=== PATIENT | female | born 1945 | race Caucasian/White ===

== ENCOUNTER 2022-06-07 12:38 | Inpatient (IN) | payer MEDICAID, MEDICARE ==
[~2022-06-07] VITALS: Ht 160 cm; Wt 53.1 kg
[2022-06-07 12:44] VITALS: BP_SYST 113
[2022-06-07] MEDS ORDERED: ASPIRIN 81 MG TAB.CHEW PO ONE (13:45)
[2022-06-07 14:02] LABS: ANION GAP 3 (5-15); CALCIUM 8.3 mg/dL (8.4-11.0); CHLORIDE 107 mmol/L (98-107); CREATININE 0.77 mg/dL (0.55-1.30); GLUCOSE 174 mg/dL (70-99); POTASSIUM 4.5 mmol/L (3.5-5.1); SODIUM SERUM 140 mmol/L (136-145); UREA NITROGEN, BLOOD 18 mg/dL (8-21)
[2022-06-07 14:11] LABS: ALANINE AMINOTRANSFERASE 9 U/L (12-78); ALBUMIN 2.4 g/dL (3.4-4.8); ASPARTATE AMINOTRANSFERASE 20 U/L (10-37); TOTAL BILIRUBIN 0.3 mg/dL (0.0-1.0)
[2022-06-07 14:20] LABS: BASOPHILS % (AUTO) 0.2 % (0.0-2.0); EOSINOPHILS % (AUTO) 0.2 % (0.0-4.0); HEMOGLOBIN 7.4 g/dL (12.0-16.0); LYMPHOCYTES # (AUTO) 0.8 K/uL (1.0-5.5); LYMPHOCYTES % (AUTO) 10.9 % (20.5-51.5); MEAN CORPUSCULAR HEMOGLOBIN 33 pg (27-31); MEAN CORPUSCULAR HGB CONC 32 % (32-36); MEAN CORPUSCULAR VOLUME 102 fL (79.0-98.0); MONOCYTES # (AUTO) 0.1 K/uL (0.0-1.0); MONOCYTES % (AUTO) 1.3 % (1.7-9.3); NEUTROPHILS % (AUTO) 87.4 % (40.0-70.0); PLATELET COUNT (AUTO) 288 K/uL (130-430); RED BLOOD CELL COUNT(AUTO) 2.26 MIL/uL (4.2-6.2); RED CELL DISTRIBUTION WIDTH 22.6 % (9.0-15.0); WHITE BLOOD COUNT (AUTO) 6.9 K/uL (4.8-10.8)
[2022-06-07] MEDS: D5NS 500 ML IV SCH ×2 (16:11→20:35)
[2022-06-07] MEDS ORDERED: PRED10TA PO (17:29)
[2022-06-07] MEDS ORDERED: CLOP75TA32 PO (17:29)
[2022-06-07] MEDS ORDERED: TRAM50TA2 PO (17:29)
[2022-06-07] MEDS ORDERED: POLY17PO4 PO (17:29)
[2022-06-07] MEDS ORDERED: FAMO20TA8 PO (17:29)
[2022-06-07] MEDS ORDERED: ASPI-1155 PO (17:29)
[2022-06-07] MEDS ORDERED: ARGI1POW13 PO (17:29)
[2022-06-07] MEDS ORDERED: LOVI40 SQ (17:29)
[2022-06-07] MEDS ORDERED: SYN50 PO (17:29)
[2022-06-07] MEDS ORDERED: [UNRECOGNIZED DRUG - CODE] PO (17:29)
[2022-06-07] MEDS ORDERED: MONT10TA22 PO (17:29)
[2022-06-07] MEDS ORDERED: COR3.125 PO (17:29)
[2022-06-07] MEDS ORDERED: MULT-1117 PO (17:29)
[2022-06-07] MEDS ORDERED: ALBU2.5V7 INH (17:29)
[2022-06-07 18:25] VITALS: BP_SYST 120
[2022-06-07 20:00] VITALS: BP_SYST 111
[2022-06-07] MEDS: INSULIN REGULAR, HUMAN 100 UNITS/ML, 10 ML VIAL (humuLIN R) SUBCUT PRN (20:34)
[2022-06-07 21:06] VITALS: BP_SYST 125
[2022-06-07] MEDS ORDERED: DULA0.75 SQ (21:42)
[2022-06-07] MEDS ORDERED: ALBUTEROL SULFATE 0.083% 2.5 MG/3 ML VIAL.NEB INH PRN (21:45)
[2022-06-07 22:00] VITALS: BP_SYST 122
[2022-06-08] VITALS: BP_SYST 122
[2022-06-08] MEDS: D5NS 500 ML IV SCH ×3 (04:20→17:11)
[2022-06-08] MEDS: LEVOTHYROXINE SODIUM 0.05 MG TABLET PO SCH (06:01)
[2022-06-08 06:48] LABS: BASOPHILS % (AUTO) 0.4 % (0.0-2.0); EOSINOPHILS # (AUTO) 0.1 K/uL (0.0-0.4); EOSINOPHILS % (AUTO) 1.5 % (0.0-4.0); LYMPHOCYTES # (AUTO) 1.6 K/uL (1.0-5.5); LYMPHOCYTES % (AUTO) 29.2 % (20.5-51.5); MEAN CORPUSCULAR HEMOGLOBIN 34 pg (27-31); MEAN CORPUSCULAR HGB CONC 33 % (32-36); MEAN CORPUSCULAR VOLUME 103 fL (79.0-98.0); MONOCYTES # (AUTO) 0.7 K/uL (0.0-1.0); MONOCYTES % (AUTO) 13.3 % (1.7-9.3); NEUTROPHILS % (AUTO) 55.6 % (40.0-70.0); PLATELET COUNT (AUTO) 273 K/uL (130-430); RED CELL DISTRIBUTION WIDTH 22.2 % (9.0-15.0); WHITE BLOOD COUNT (AUTO) 5.4 K/uL (4.8-10.8)
[2022-06-08 07:54] LABS: ANION GAP 3 (5-15); CALCIUM 7.8 mg/dL (8.4-11.0); CHLORIDE 110 mmol/L (98-107); CREATININE 0.72 mg/dL (0.55-1.30); FREE T4 (FREE THYROXINE) 1.4 ng/dl (0.8-1.5); GLUCOSE 117 mg/dL (70-99); PHOSPHORUS 2.8 mg/dL (2.7-4.5); POTASSIUM 3.9 mmol/L (3.5-5.1); SODIUM SERUM 143 mmol/L (136-145); THYROID STIMULATING HORMONE 2.43 uIu/mL (0.36-3.74); UREA NITROGEN, BLOOD 15 mg/dL (8-21)
[2022-06-08 08:00] VITALS: BP_SYST 105
[2022-06-08 08:18] LABS: HEMOGLOBIN 6.8 g/dL (12.0-16.0); RED BLOOD CELL COUNT(AUTO) 1.99 MIL/uL (4.2-6.2)
[2022-06-08 08:19] LABS: HEMATOCRIT 20.4 % (36-48)
[2022-06-08] MEDS ORDERED: CARVEDILOL 3.125 MG TABLET (COREG) PO SCH (09:00)
[2022-06-08] MEDS: ENOXAPARIN SODIUM 40 MG/0.4 ML SYRINGE SQ SCH (09:00)
[2022-06-08] MEDS: predniSONE 10 MG TABLET PO SCH ×2 (09:00→09:05)
[2022-06-08] MEDS: MONTELUKAST 10 MG TABLET PO SCH ×2 (09:00→09:05)
[2022-06-08] MEDS: MULTIVITAMINS TAB 1 TABLET PO SCH ×2 (09:00→09:05)
[2022-06-08] MEDS: ASPIRIN 81 MG TAB.CHEW PO SCH ×2 (09:00→09:04)
[2022-06-08] MEDS: FAMOTIDINE 20 MG TABLET PO SCH ×2 (09:00→09:05)
[2022-06-08] MEDS: CLOPIDOGREL BISULFATE 75 MG TABLET PO SCH ×2 (09:00→09:05)
[2022-06-08] MEDS: POLYETHYLENE GLYCOL 3350, 17 GM/ POWD.PACK PO SCH ×2 (09:04→20:38)
[2022-06-08 09:05] LABS: TOTAL IRON BIND. CAPACITY 122 ug/dL (250-450)
[2022-06-08] MEDS ORDERED: CARVEDILOL 3.125 MG TABLET (COREG) PO ONE (10:15)
[2022-06-08 12:36] VITALS: BP_SYST 120
[2022-06-08 16:33] VITALS: BP_SYST 120
[2022-06-08 17:46] LABS: BILIRUBIN,URINE NEGATIVE (NEGATIVE); BLOOD, URINE 1+ (NEGATIVE); COLOR,URINE YELLOW (YELLOW); GLUCOSE,URINE NEGATIVE (NEGATIVE); KETONES,URINE NEGATIVE (NEGATIVE); LEUKOCYTE ESTERASE ,URINE NEGATIVE (NEGATIVE); NITRITE, URINE NEGATIVE (NEGATIVE); PROTEIN URINE NEGATIVE (NEGATIVE)
[2022-06-08 17:54] LABS: CLARITY/URINE SLIGHTLY CLOUDY (CLEAR)
[2022-06-08 17:57] LABS: BACTERIA,URINE FEW /HPF (None Seen); MUCUS,URINE None Seen /LPF (None Seen)
[2022-06-08] MEDS: traMADol HCL HCL 50 MG TABLET (ULTRAM) PO PRN (19:22)
[2022-06-08 20:00] VITALS: BP_SYST 137
[2022-06-08] MEDS: CARVEDILOL 3.125 MG TABLET (COREG) PO SCH (20:38)
[2022-06-08] MEDS ORDERED: SOD FERRIC GLUC COMPLEX/SUC 125 MG in NS 100 ML IV SCH (21:00)
[2022-06-09] VITALS: BP_SYST 128
[2022-06-09] MEDS: D5NS 500 ML IV SCH ×4 (00:20→20:50)
[2022-06-09] MEDS: LEVOTHYROXINE SODIUM 0.05 MG TABLET PO SCH (06:09)
[2022-06-09 07:02] LABS: BASOPHILS % (AUTO) 0.2 % (0.0-2.0); EOSINOPHILS # (AUTO) 0.2 K/uL (0.0-0.4); EOSINOPHILS % (AUTO) 3.2 % (0.0-4.0); HEMATOCRIT 26.2 % (36-48); HEMOGLOBIN 8.7 g/dL (12.0-16.0); LYMPHOCYTES # (AUTO) 1.5 K/uL (1.0-5.5); LYMPHOCYTES % (AUTO) 27.4 % (20.5-51.5); MEAN CORPUSCULAR HEMOGLOBIN 32 pg (27-31); MEAN CORPUSCULAR HGB CONC 33 % (32-36); MEAN CORPUSCULAR VOLUME 98 fL (79.0-98.0); MONOCYTES # (AUTO) 0.6 K/uL (0.0-1.0); MONOCYTES % (AUTO) 11.2 % (1.7-9.3); NEUTROPHILS # (AUTO) 3.3 K/uL (1.8-7.7); PLATELET COUNT (AUTO) 244 K/uL (130-430); RED BLOOD CELL COUNT(AUTO) 2.69 MIL/uL (4.2-6.2); RED CELL DISTRIBUTION WIDTH 21.9 % (9.0-15.0); RETICULOCYTE COUNT 7.4 % (0.5-1.5); WHITE BLOOD COUNT (AUTO) 5.6 K/uL (4.8-10.8)
[2022-06-09 08:00] VITALS: BP_SYST 134
[2022-06-09 08:06] LABS: FOLATE (FOLIC ACID) 10.1 ng/mL (>3.0)
[2022-06-09] MEDS: POLYETHYLENE GLYCOL 3350, 17 GM/ POWD.PACK PO SCH ×2 (09:40→20:49)
[2022-06-09] MEDS: SOD FERRIC GLUC COMPLEX/SUC 125 MG in NS 100 ML IV SCH (09:40)
[2022-06-09] MEDS: CLOPIDOGREL BISULFATE 75 MG TABLET PO SCH (09:41)
[2022-06-09] MEDS: FAMOTIDINE 20 MG TABLET PO SCH (09:41)
[2022-06-09] MEDS: predniSONE 10 MG TABLET PO SCH (09:41)
[2022-06-09] MEDS: MULTIVITAMINS TAB 1 TABLET PO SCH (09:41)
[2022-06-09] MEDS: ENOXAPARIN SODIUM 40 MG/0.4 ML SYRINGE SQ SCH (09:41)
[2022-06-09] MEDS: MONTELUKAST 10 MG TABLET PO SCH (09:41)
[2022-06-09] MEDS: ASPIRIN 81 MG TAB.CHEW PO SCH (09:41)
[2022-06-09] MEDS: CARVEDILOL 3.125 MG TABLET (COREG) PO SCH ×2 (09:42→20:49)
[2022-06-09 12:00] VITALS: BP_SYST 126
[2022-06-09 16:00] VITALS: BP_SYST 138
[2022-06-09 20:00] VITALS: BP_SYST 128
[2022-06-09] MEDS: traMADol HCL HCL 50 MG TABLET (ULTRAM) PO PRN (20:49)
[2022-06-10] VITALS: BP_SYST 134
[2022-06-10] MEDS: D5NS 500 ML IV SCH ×3 (03:00→16:28)
[2022-06-10] MEDS: LEVOTHYROXINE SODIUM 0.05 MG TABLET PO SCH (06:11)
[2022-06-10 07:09] LABS: BASOPHILS % (AUTO) 0.2 % (0.0-2.0); EOSINOPHILS # (AUTO) 0.1 K/uL (0.0-0.4); EOSINOPHILS % (AUTO) 1.6 % (0.0-4.0); HEMATOCRIT 25.6 % (36-48); HEMOGLOBIN 8.6 g/dL (12.0-16.0); LYMPHOCYTES # (AUTO) 1.4 K/uL (1.0-5.5); LYMPHOCYTES % (AUTO) 31.6 % (20.5-51.5); MEAN CORPUSCULAR HEMOGLOBIN 32 pg (27-31); MEAN CORPUSCULAR HGB CONC 33 % (32-36); MEAN CORPUSCULAR VOLUME 97 fL (79.0-98.0); MONOCYTES # (AUTO) 0.6 K/uL (0.0-1.0); MONOCYTES % (AUTO) 14.4 % (1.7-9.3); NEUTROPHILS # (AUTO) 2.3 K/uL (1.8-7.7); NEUTROPHILS % (AUTO) 52.2 % (40.0-70.0); PLATELET COUNT (AUTO) 231 K/uL (130-430); RED BLOOD CELL COUNT(AUTO) 2.64 MIL/uL (4.2-6.2); RED CELL DISTRIBUTION WIDTH 21.4 % (9.0-15.0); WHITE BLOOD COUNT (AUTO) 4.4 K/uL (4.8-10.8)
[2022-06-10 08:00] VITALS: BP_SYST 116
[2022-06-10] MEDS: POLYETHYLENE GLYCOL 3350, 17 GM/ POWD.PACK PO SCH ×2 (08:24→21:00)
[2022-06-10] MEDS: predniSONE 10 MG TABLET PO SCH (08:24)
[2022-06-10] MEDS: CLOPIDOGREL BISULFATE 75 MG TABLET PO SCH (08:24)
[2022-06-10] MEDS: MULTIVITAMINS TAB 1 TABLET PO SCH (08:24)
[2022-06-10] MEDS: SOD FERRIC GLUC COMPLEX/SUC 125 MG in NS 100 ML IV SCH (08:24)
[2022-06-10] MEDS: ENOXAPARIN SODIUM 40 MG/0.4 ML SYRINGE SQ SCH (08:24)
[2022-06-10] MEDS: ASPIRIN 81 MG TAB.CHEW PO SCH (08:24)
[2022-06-10] MEDS: FAMOTIDINE 20 MG TABLET PO SCH (08:24)
[2022-06-10] MEDS: CARVEDILOL 3.125 MG TABLET (COREG) PO SCH ×2 (08:25→21:33)
[2022-06-10] MEDS: MONTELUKAST 10 MG TABLET PO SCH (08:25)
[2022-06-10 08:27] VITALS: BP_SYST 116
[2022-06-10 12:00] VITALS: BP_SYST 137
[2022-06-10 16:00] VITALS: BP_SYST 122
[2022-06-10] MEDS: INSULIN REGULAR, HUMAN 100 UNITS/ML, 10 ML VIAL (humuLIN R) SUBCUT PRN (17:31)
[2022-06-10 20:00] VITALS: BP_SYST 125
[2022-06-10] MEDS: traMADol HCL HCL 50 MG TABLET (ULTRAM) PO PRN (21:37)
[2022-06-11] VITALS: BP_SYST 119; BP_SYST 126
[2022-06-11] MEDS: D5NS 500 ML IV SCH ×3 (03:48→11:31)
[2022-06-11] MEDS: LEVOTHYROXINE SODIUM 0.05 MG TABLET PO SCH (06:03)
[2022-06-11 06:51] LABS: BASOPHILS % (AUTO) 0.3 % (0.0-2.0); EOSINOPHILS # (AUTO) 0.1 K/uL (0.0-0.4); EOSINOPHILS % (AUTO) 1.2 % (0.0-4.0); HEMATOCRIT 25.3 % (36-48); HEMOGLOBIN 8.5 g/dL (12.0-16.0); LYMPHOCYTES # (AUTO) 1.8 K/uL (1.0-5.5); MEAN CORPUSCULAR HEMOGLOBIN 32 pg (27-31); MEAN CORPUSCULAR HGB CONC 34 % (32-36); MEAN CORPUSCULAR VOLUME 96 fL (79.0-98.0); MONOCYTES # (AUTO) 0.8 K/uL (0.0-1.0); NEUTROPHILS # (AUTO) 4.2 K/uL (1.8-7.7); NEUTROPHILS % (AUTO) 61.5 % (40.0-70.0); PLATELET COUNT (AUTO) 230 K/uL (130-430); RED BLOOD CELL COUNT(AUTO) 2.65 MIL/uL (4.2-6.2); RED CELL DISTRIBUTION WIDTH 20.5 % (9.0-15.0); WHITE BLOOD COUNT (AUTO) 6.9 K/uL (4.8-10.8)
[2022-06-11 07:45] LABS: ANION GAP 0 (5-15); CALCIUM 7.9 mg/dL (8.4-11.0); CHLORIDE 108 mmol/L (98-107); CREATININE 0.56 mg/dL (0.55-1.30); GLUCOSE 112 mg/dL (70-99); POTASSIUM 3.6 mmol/L (3.5-5.1); SODIUM SERUM 138 mmol/L (136-145); UREA NITROGEN, BLOOD 7 mg/dL (8-21)
[2022-06-11 08:00] VITALS: BP_SYST 104
[2022-06-11] MEDS: ENOXAPARIN SODIUM 40 MG/0.4 ML SYRINGE SQ SCH (08:44)
[2022-06-11] MEDS: SOD FERRIC GLUC COMPLEX/SUC 125 MG in NS 100 ML IV SCH (08:44)
[2022-06-11] MEDS: FAMOTIDINE 20 MG TABLET PO SCH (08:44)
[2022-06-11] MEDS: MULTIVITAMINS TAB 1 TABLET PO SCH (08:45)
[2022-06-11] MEDS: ASPIRIN 81 MG TAB.CHEW PO SCH (08:45)
[2022-06-11] MEDS: CLOPIDOGREL BISULFATE 75 MG TABLET PO SCH (08:45)
[2022-06-11] MEDS: CARVEDILOL 3.125 MG TABLET (COREG) PO SCH (08:45)
[2022-06-11] MEDS: predniSONE 10 MG TABLET PO SCH (08:45)
[2022-06-11] MEDS: MONTELUKAST 10 MG TABLET PO SCH (08:45)
[2022-06-11] MEDS: POLYETHYLENE GLYCOL 3350, 17 GM/ POWD.PACK PO SCH (08:46)
[2022-06-11 17:22] VITALS: BP_SYST 113
[2022-06-11 17:32] VITALS: BP_SYST 113
[2022-06-11 18:27] VITALS: BP_SYST 124
== END 2022-06-11 20:30 | DRG 663 ==
LOC: SED 12:38 → SMU 14:54
PROVIDERS: ADMIT Family Medicine; ATTEND Family Medicine
PROC: 30233N1 Transfusion of Nonautologous Red Blood Cells into Peripheral Vein, Percutaneous Approach (ICD-10-PCS; principal; 2022-06-08)
DX: D53.9 Nutritional anemia, unspecified (principal); R65.10 Systemic inflammatory response syndrome (SIRS) of non-infectious origin without acute organ dysfunction; E44.0 Moderate protein-calorie malnutrition; E83.41 Hypermagnesemia; E87.8 Other disorders of electrolyte and fluid balance, not elsewhere classified; E03.9 Hypothyroidism, unspecified; I10 Essential (primary) hypertension; Z20.822 Contact with and (suspected) exposure to COVID-19; M19.90 Unspecified osteoarthritis, unspecified site; Z68.20 Body mass index [BMI] 20.0-20.9, adult
CPT/HCPCS: 36415; 71045; 80048; 80053; 81000; 82607; 82728; 82746; 82962; 83540; 83550; 83735; 83880; 84100; 84439; 84443; 84484; 85025; 85044; 86886; 86900; 86901; 86920; 87081; 93005; 99285; J1650; J1815; J2916; J7512; P9021

== ENCOUNTER 2022-09-09 08:11 | Inpatient (IN) | payer OTHER, MEDICAID ==
[~2022-09-09] VITALS: Ht 160 cm; Wt 45.8 kg
[~2022-09-09 08:11] MED LIST: ALBU2.5V7 INH; ARGI1POW13 PO; ASPI-1155 PO; CLOP75TA32 PO; COR3.125 PO; FAMO20TA8 PO; MONT10TA22 PO; MULT-1117 PO; POLY17PO4 PO; PRED10TA PO; SYN50 PO; TRAM50TA2 PO; [UNRECOGNIZED DRUG - CODE] PO
[2022-09-09 08:27] VITALS: BP_SYST 110
--- NOTE | 2022-09-09 08:40 | NUR ---
RECEIVED PT FROM EMT, PT BIBA ACLS FOR ALOC FROM [facility]. PT'S BASELINE IS A/OX1-2, STAFF AT SNF STATES PT IS MORE ALTERED THAN NORMAL. TEMP 99.7, HR 102. RESP SHALLOW, LUNG SOUNDS DIMINISHED. NO S/S OF N/V/D/C. PT INCONTENT OF BOWEL AND BLADDER. DISTAL PULSES NORMAL, SKIN WARM AND INTACT, NO EDEMA. PT HAS LEILANI MIDLINE WITH 2 LUMENS. DRESSING SOILED. SIDERAILS UP X2.
--- NOTE | 2022-09-09 09:04 | NUR ---
MIDLINE DRESSING CHANGE PREFORMED. SITE SHOWS WHITE PUS, DR. GLOVER MADE AWARE AND ASSESED SITE. STATED OKAY TO USE LINE. LINE FLUSHED AND PATENT.
--- NOTE | 2022-09-09 09:05 | NUR ---
LABS DRAWN, CXR PREFORMED. PT MAP 68, DR. GLOVER MADE AWARE. RECEIVED ORDER FOR 1000ML NS BOLUS, ORDER CARRIED OUT.
[2022-09-09] MEDS ORDERED: NACL 0.9% 1,000 ML IV ONE ×2 (09:15→12:30)
[2022-09-09 09:23] LABS: BASOPHILS % (AUTO) 0.1 % (0.0-2.0); HEMATOCRIT 32.4 % (36-48); HEMOGLOBIN 10.7 g/dL (12.0-16.0); LYMPHOCYTES # (AUTO) 0.5 K/uL (1.0-5.5); LYMPHOCYTES % (AUTO) 3.4 % (20.5-51.5); MEAN CORPUSCULAR HEMOGLOBIN 30 pg (27-31); MEAN CORPUSCULAR HGB CONC 33 % (32-36); MEAN CORPUSCULAR VOLUME 90 fL (79.0-98.0); MONOCYTES # (AUTO) 0.6 K/uL (0.0-1.0); MONOCYTES % (AUTO) 4.7 % (1.7-9.3); NEUTROPHILS # (AUTO) 12.5 K/uL (1.8-7.7); NEUTROPHILS % (AUTO) 91.8 % (40.0-70.0); PLATELET COUNT (AUTO) 138 K/uL (130-430); RED BLOOD CELL COUNT(AUTO) 3.59 MIL/uL (4.2-6.2); WHITE BLOOD COUNT (AUTO) 13.7 K/uL (4.8-10.8)
--- NOTE | 2022-09-09 09:29 | NUR ---
COVID OBTAINED, BELONGINGS COMPLETED. PT TAKEN FOR CT SCAN AT THIS TIME.
[2022-09-09 09:45] LABS: INR 1.1 (0.8-1.2); PROTHROMBIN TIME 11.1 SECS (9.5-12.5)
[2022-09-09 09:50] LABS: ANION GAP 5 (5-15); CALCIUM 8.7 mg/dL (8.4-11.0); CHLORIDE 103 mmol/L (98-107); CREATININE 1.41 mg/dL (0.55-1.30); GLUCOSE 112 mg/dL (70-99); UREA NITROGEN, BLOOD 36 mg/dL (8-21)
[2022-09-09 10:03] LABS: ACETAMINOPHEN < 1 ug/mL (1-30); ALANINE AMINOTRANSFERASE 8 U/L (12-78); ALCOHOL, BLOOD 5 mg/dL (<10); ASPARTATE AMINOTRANSFERASE 32 U/L (10-37); C-REACTIVE PROTEIN QUANT 39.7 mg/dL (0-0.5); TOTAL BILIRUBIN 1.3 mg/dL (0.0-1.0)
--- NOTE | 2022-09-09 10:07 | NUR ---
lab reported troponin 4099 primary rn made aware.
[2022-09-09 10:11] LABS: ACETONE, SERUM NEGATIVE (NEGATIVE)
[2022-09-09 10:33] LABS: BILIRUBIN,URINE 1+ (NEGATIVE); BLOOD, URINE 3+ (NEGATIVE); GLUCOSE,URINE NEGATIVE (NEGATIVE); KETONES,URINE NEGATIVE (NEGATIVE); LEUKOCYTE ESTERASE ,URINE TRACE (NEGATIVE); NITRITE, URINE NEGATIVE (NEGATIVE); PROTEIN URINE 2+ (NEGATIVE)
[2022-09-09 10:40] LABS: CLARITY/URINE HAZY (CLEAR); COLOR,URINE YELLOW (YELLOW); UROBILINOGEN,URINE >=8 (0.2-1.0)
[2022-09-09 10:49] LABS: BARBITURATE, URINE NEGATIVE (NEG <=200); BENZODIAZEPINE, URINE NEGATIVE (NEG <=150); CANNABINOID, URINE NEGATIVE (NEG <=50); COCAINE, URINE NEGATIVE (NEG <=150); METHAMPHETAMINES SCREEN,URINE NEGATIVE (NEG <=500); OPIATE, URINE NEGATIVE (NEG <=100); PHENCYCLIDINE SCREEN,URINE NEGATIVE (NEG <=25); UR TRICYCLIC ANTIDEPRESSANTS NEGATIVE (NEG <=300); URINE AMPHETAMINE NEGATIVE (NEG <=500); URINE METHADONE NEGATIVE (NEG <=200); URINE OXYCODONE SCREEN NEGATIVE (NEG <=100); URINE PROPOXYPHENE SCREEN NEGATIVE (NEG <=300)
--- NOTE | 2022-09-09 11:05 | NUR ---
Admit bed requested Patient will be admitted to care of . Admitted to TELEMETRY unit. Diagnosis ARF,DEHYDRATION,ELEVATE TROPONIN Inpatient (Yes or No) YES Observation (Yes or No) NO Orientation concerns or request close to nursing station (Yes or No) NO Covid Status NEG On vent or bipap NO Isolation requirements NO Needs a sitter NO From Home (Yes or if No enter name of facility) [facility] Requires Dialysis (Yes or No) NO Med Rec Completed (Yes of No) YES
[2022-09-09 11:31] LABS: BACTERIA,URINE MANY /HPF (None Seen)
--- NOTE | 2022-09-09 12:26 | NUR ---
DR. ENGLISH AT BEDSIDE TO ASSESS PT. RECEIVED ORDER FOR 1000ML NS BOLUS. ORDER CARRIED OUT.
[2022-09-09] MEDS ORDERED: cefTRIAXone 1 GM in D5W 50 ML IV SCH (12:30)
[2022-09-09] MEDS ORDERED: METHYLPREDNISOLONE SOD SUCC 40 MG/ML VIAL IVP ONE (13:00)
[2022-09-09] MEDS ORDERED: ENOXAPARIN SODIUM 40 MG/0.4 ML SYRINGE SUBCUT ONE (13:00)
[2022-09-09] MEDS: POTASSIUM CHLORIDE 20 MEQ in D5NS 1,000 ML IV SCH ×2 (13:38→23:06)
--- NOTE | 2022-09-09 13:39 | NUR ---
SCHEDULED MEDS GIVEN. D5 KCL 20 MEQ IVF STARTED AT 100ML/HOUR.
--- NOTE | 2022-09-09 14:39 | NUR ---
Patient will be admitted to care of GARRICK KO. Admitted to TELEMETRY unit. Will go to room 121B. Belongings list completed. Complete and up to date summary report printed. SBAR report to be given at bedside with opportunity for questions.
[2022-09-09] MEDS ORDERED: LEVO125C4 PO (14:54)
[2022-09-09] MEDS ORDERED: MONT10TA22 PO (14:54)
[2022-09-09] MEDS ORDERED: INSU100V (14:54)
[2022-09-09] MEDS ORDERED: POLY1530 PO (14:54)
[2022-09-09] MEDS ORDERED: MULT-1117 PO (14:54)
[2022-09-09] MEDS ORDERED: PRO40 PO (14:54)
[2022-09-09] MEDS ORDERED: MIRT7.5T11 PO (14:54)
[2022-09-09] MEDS ORDERED: APIX2.5T PO (14:54)
[2022-09-09] MEDS ORDERED: ALBU2.5V7 INH (14:54)
[2022-09-09] MEDS ORDERED: LOSA100T23 PO (14:54)
[2022-09-09] MEDS ORDERED: NITR0.4T47 SL (14:54)
[2022-09-09] MEDS ORDERED: MOM PO (14:54)
[2022-09-09] MEDS ORDERED: AMIO200T66 PO (14:54)
[2022-09-09] MEDS ORDERED: TRAM50TA2 PO (14:54)
[2022-09-09] MEDS ORDERED: [UNRECOGNIZED DRUG - CODE] PO (14:54)
[2022-09-09] MEDS ORDERED: CARV3.1246 PO (14:54)
[2022-09-09] MEDS ORDERED: CLON0.1T PO (14:54)
[2022-09-09 15:09] VITALS: BP_SYST 102
--- NOTE | 2022-09-09 16:30 | NUR ---
receive the patient at rm 121B from emergency room driss Martinez in a stable condition under the care md dockery with admitting diagnosis of acute renal failure , dehydration , elevated troponin . aox1-2 no complain of pain at this time . no sign and symptoms of respiratory distress . will continue to monitor
--- NOTE | 2022-09-09 16:41 | NUR ---
just placed charles catheter . submitted sample for urine culture to the laboratory
[2022-09-09] MEDS ORDERED: ONDANSETRON HCL 4 MG/2 ML VIAL IVP PRN (16:45)
--- NOTE | 2022-09-09 16:52 | NUR ---
CONSULT GI DYSPHAGIA DR ROMAN [phone] S/W MARY EXCHANGE
--- NOTE | 2022-09-09 18:41 | NUR ---
will endorse to flight follower rn for continuity of care
[2022-09-09 20:00] VITALS: BP_SYST 104
[2022-09-09] MEDS: PANTOPRAZOLE SODIUM 40 MG/VIAL (PROTONIX) IVP SCH (22:18)
[2022-09-09] MEDS: METHYLPREDNISOLONE SOD SUCC 40 MG/ML VIAL IVP SCH (22:19)
[2022-09-10] VITALS: BP_SYST 113
[2022-09-10 04:17] LABS: BASOPHILS % (AUTO) 0.1 % (0.0-2.0); EOSINOPHILS % (AUTO) 0.2 % (0.0-4.0); HEMOGLOBIN 9.8 g/dL (12.0-16.0); LYMPHOCYTES # (AUTO) 0.3 K/uL (1.0-5.5); LYMPHOCYTES % (AUTO) 3.2 % (20.5-51.5); MEAN CORPUSCULAR HEMOGLOBIN 30 pg (27-31); MEAN CORPUSCULAR HGB CONC 34 % (32-36); MEAN CORPUSCULAR VOLUME 90 fL (79.0-98.0); MONOCYTES # (AUTO) 0.3 K/uL (0.0-1.0); MONOCYTES % (AUTO) 3.5 % (1.7-9.3); PLATELET COUNT (AUTO) 112 K/uL (130-430); RED BLOOD CELL COUNT(AUTO) 3.23 MIL/uL (4.2-6.2); RED CELL DISTRIBUTION WIDTH 17.2 % (9.0-15.0); WHITE BLOOD COUNT (AUTO) 8.6 K/uL (4.8-10.8)
[2022-09-10 04:44] LABS: INR 1.1 (0.8-1.2); PROTHROMBIN TIME 10.8 SECS (9.5-12.5)
[2022-09-10 05:00] LABS: ALBUMIN 1.7 g/dL (3.4-4.8); TOTAL BILIRUBIN 0.6 mg/dL (0.0-1.0)
[2022-09-10 05:02] LABS: ALANINE AMINOTRANSFERASE 15 U/L (12-78); ANION GAP 5 (5-15); ASPARTATE AMINOTRANSFERASE 38 U/L (10-37); CALCIUM 8.2 mg/dL (8.4-11.0); CHLORIDE 108 mmol/L (98-107); CREATININE 1.34 mg/dL (0.55-1.30); GLUCOSE 208 mg/dL (70-99); LIPASE 33 U/L (73-393); THYROID STIMULATING HORMONE 5.68 uIu/mL (0.36-3.74); UREA NITROGEN, BLOOD 48 mg/dL (8-21)
[2022-09-10 06:52] LABS: CHOLESTEROL 81 mg/dL (<200); HDL CHOLESTEROL 18 mg/dL (>55); LDL CHOLESTEROL 23 mg/dL (<100); TRIGLYCERIDES 112 mg/dL (30-150)
[2022-09-10] MEDS: PANTOPRAZOLE SODIUM 40 MG/VIAL (PROTONIX) IVP SCH ×2 (09:00→22:17)
[2022-09-10] MEDS: METHYLPREDNISOLONE SOD SUCC 40 MG/ML VIAL IVP SCH ×2 (09:00→22:17)
[2022-09-10] MEDS ORDERED: ENOXAPARIN SODIUM 40 MG/0.4 ML SYRINGE SUBCUT SCH ×2 (09:00)
[2022-09-10] MEDS: POTASSIUM CHLORIDE 20 MEQ in D5NS 1,000 ML IV SCH ×2 (09:12→17:54)
[2022-09-10] MEDS ORDERED: VANCOMYCIN HCL 1 GM/NS PREMIX 250 ML IV ONE (11:15)
[2022-09-10 11:42] VITALS: BP_SYST 107
[2022-09-10] MEDS ORDERED: *PPN PER PHARMACY XX PRN (15:15)
--- NOTE | 2022-09-10 17:14 | NUR ---
MD DAVID PAGED FOR KCL 3.2
--- NOTE | 2022-09-10 17:15 | NUR ---
40MEQ KCL IV ORDERED AND STARTED BAG 1
[2022-09-10] MEDS ORDERED: KCL 40 mEq in 100 mL (PREMIX) 100 ML IV ONE (17:30)
[2022-09-10 17:36] VITALS: BP_SYST 112
[2022-09-10] MEDS: KCL 20 mEq in 100 mL (PREMIX) 100 ML IV SCH ×2 (17:53→22:26)
--- NOTE | 2022-09-10 18:55 | NUR ---
PRELIMINARY BLOOD CLUTURES POSITIVE DR GRACIE ROMERO. PT DAUGHTER IN AT BEDSIDE AND SINGNED CONSENT FOR PEG
[2022-09-10 20:00] VITALS: BP_SYST 108
[2022-09-11] VITALS: BP_SYST 110
[2022-09-11 04:00] VITALS: BP_SYST 114
[2022-09-11 08:00] VITALS: BP_SYST 112
--- NOTE | 2022-09-11 08:49 | NUR ---
DR WELSH PAGED REGARDING MRSA OF NARES AWAITING A RETURN CALL
--- NOTE | 2022-09-11 08:51 | NUR ---
CALLED BACK BACTROBAN BID X7 DAYS
[2022-09-11] MEDS: METHYLPREDNISOLONE SOD SUCC 40 MG/ML VIAL IVP SCH ×2 (09:59→23:04)
[2022-09-11] MEDS: PANTOPRAZOLE SODIUM 40 MG/VIAL (PROTONIX) IVP SCH ×2 (09:59→23:04)
[2022-09-11] MEDS: POTASSIUM CHLORIDE 20 MEQ in D5NS 1,000 ML IV SCH ×2 (10:02→15:30)
[2022-09-11 12:00] VITALS: BP_SYST 109
[2022-09-11] MEDS: MIDAZOLAM HCL 5 MG/5 ML VIAL ONE ×2 (12:22→12:26)
[2022-09-11] MEDS: MEPERIDINE 100 MG INJ. 100 MG/ML VIAL ONE ×2 (12:22→12:26)
[2022-09-11] MEDS ORDERED: VANCOMYCIN HCL 1 GM/NS PREMIX 250 ML IV ONE (12:45)
--- NOTE | 2022-09-11 13:30 | NUR ---
PT WENT FOR PEG PLACEMENT AND RETURNED VITAL SIGNS STABLE VANCOMYCIN STARTED PT APPEARS STABLE WILL CONTINUE TO MONITOR AND ASSESS
--- NOTE | 2022-09-11 14:30 | NUR ---
CALL PLACED TO MD GAYTAN REGARDING PT POSITIVE FOR ECOLI AND MDRO OF URINE PER MD HE WILL BE IN TO WRITE NEW ORDERS FOR PT
[2022-09-11 16:00] VITALS: BP_SYST 117
--- NOTE | 2022-09-11 16:30 | NUR ---
Dietitian Recommendations * If/when medically appropriate, initiate EN: Glucerna 1.2 @ 60mL/hr (goal); 150mL Free water flushes Q6h via GT Provides daily: 1728kcals, 86g pro, 1759mL (1159mL EN) Meets: 94% upper estimated kcals, 94% upper estimated PRO, 98% upper estimated fluids * Start EN @ 20mL and increase 10mL q 10-12H till goal * Refeeding risk: monitor electrolytes and thiamine x 3-5 days * Recommend MVI, B12, thiamine, VIT C, and VIT D for FTT * Consider monitor Fe lab Please refer to nutrition assessment for details, thanks! CC, MPH, RDN
[2022-09-11 20:15] VITALS: BP_SYST 138
--- NOTE | 2022-09-11 20:30 | NUR ---
Opening Note Received bedside report from [facility] nurse. Pt is in bed visiting with family, no sign /symptom of pain or distress. Patient admitted for NSTEMI and is having difficult time breathing, requiring a Rapid Response today. Daughter (RN) will stay overnight at bedside to assist in care of patient. Safety measures are in place, Addendum: 09/12/22 at 1545 by Neema Brown RN CORRECTION: NOTE FOR INCORRECT PATIENT - PLEASE DISREGARD!
[2022-09-11] MEDS ORDERED: TPN PERIPHERAL 0.0001 ML, SODIUM ACETATE 40 MEQ, POTASSIUM CHLORIDE 20 MEQ, K PHOS 9 MM... IV SCH ×9 (21:00)
[2022-09-11] MEDS: FAT EMULSIONS 250 ML IV SCH (23:18)
[2022-09-11] MEDS: AMIKACIN SULFATE 250 MG in D5W 100 ML IV SCH (23:45)
[2022-09-11] MEDS: MUPIROCIN 2% TOPICAL OINTMENT 22 GM NS SCH (23:45)
[2022-09-12 00:27] VITALS: BP_SYST 145
[2022-09-12 08:00] VITALS: BP_SYST 149
[2022-09-12 09:08] LABS: ALANINE AMINOTRANSFERASE 15 U/L (12-78); ALBUMIN 1.8 g/dL (3.4-4.8); ANION GAP 8 (5-15); ASPARTATE AMINOTRANSFERASE 19 U/L (10-37); CALCIUM 7.9 mg/dL (8.4-11.0); CHLORIDE 118 mmol/L (98-107); CREATININE 1.41 mg/dL (0.55-1.30); PHOSPHORUS 3.4 mg/dL (2.7-4.5); TOTAL BILIRUBIN 0.6 mg/dL (0.0-1.0); UREA NITROGEN, BLOOD 54 mg/dL (8-21)
[2022-09-12 09:28] LABS: GLUCOSE 426 mg/dL (70-99)
[2022-09-12] MEDS: PANTOPRAZOLE SODIUM 40 MG/VIAL (PROTONIX) IVP SCH ×2 (10:24→23:19)
[2022-09-12] MEDS: AMIKACIN SULFATE 250 MG in D5W 100 ML IV SCH ×2 (10:24→23:14)
[2022-09-12] MEDS: METHYLPREDNISOLONE SOD SUCC 40 MG/ML VIAL IVP SCH ×2 (10:24→23:15)
[2022-09-12] MEDS: MUPIROCIN 2% TOPICAL OINTMENT 22 GM NS SCH ×2 (10:26→23:19)
[2022-09-12] MEDS ORDERED: INSULIN REGULAR, HUMAN 100 UNITS/ML, 3 ML VIAL SUBCUT ONE (10:30)
[2022-09-12 12:00] VITALS: BP_SYST 113
--- NOTE | 2022-09-12 13:23 | NUR ---
blood glucose 336 paged no sliding scale ordered at this time awaiting a return call
--- NOTE | 2022-09-12 13:39 | NUR ---
Spoke w/ patient's daughter, Sinai, . She does not want her mother to go to SNF when discharged. She would like her to go home. The patient's daughter will need instruction on G-Tube feedings befoe the patient can be discharged.
--- NOTE | 2022-09-12 15:20 | NUR ---
MD WELSH PAGED FOR SLIDING SCALE FOR PT AWAITING A RETURN CALL SECOND PAGE
[2022-09-12 16:00] VITALS: BP_SYST 142
[2022-09-12] MEDS: INSULIN REGULAR, HUMAN 100 UNITS/ML, 3 ML VIAL (humuLIN R) SUBCUT SCH (18:19)
--- NOTE | 2022-09-12 18:43 | NUR ---
Nutrition F/U: Admitting Diagnosis Acute renal failure, dehydration, elevated troponin Reviewed Pertinent Medical/Surgical Hx Medical Record; RN; Bicycle DesignerTumblers Supervisor History Comment: Per EMR: 77y female BIBA for ALOC from [facility] with PMHx HTN, DM, Dementia, CAD, dysphagia and documented FTT. Per MD notes, pt found with poor PO x several weeks, anemia, dehydration, MARCELINA, metabolic encephalopathy; patient is poorly responsive and bedbound. SxHx: CABG, bowel resection x4 months RETAIL SERVICE TECHNICIAN Subjective Information: Bicycle Designer requested RD provide bolus feeding recommendations d/t patient family requests patient to go home instead of back to SNF. CM also asked RD to provide GT feeding education for pt family. RD verbalized bolus recs to CM via phone: 6 x 237mL (8oz) cartons Glucerna 1.2 per day; Free water flushes 150mL Q6H via GT. RD rounded to patient room and witnessed patient in bed with Jevity 1.2 infusing at 30mL/hr via GT. Patient would not wake to RD voice. RD unable to complete NFPE without pt consent. Pt under covers so visual NFPE could not be completed either. Pt family not in room so RD could not discuss new GT bolus feedings or nutrition/weight Hx. RD informed pt RN of handout x 2 on EN and bolus GT edu. RD left handouts in pt hard chart, per RN request. Pt was started on standard TPN (D20 AA8.5% at 42mL/hr (goal) + 20% ILE at 5mL/hr on 09/11 at 2300. TPN was d/c on 09/12 and GTF was initiated per MD. Pt noted with LBM x 1 09/12. Current Diet Order/Nutrition Support: Jevity 1.2 at 60mL/hr (goal) via GT x 0 Patient/Significant Other Unable To Verbalize Education Provided 09/12: EN; bolus GTF at home handouts for pt family left in hard chart Pertinent Medications: SSI, Protonix IV, solumedrol Pertinent Labs: Drawn 09/12 - Na 149 H, K+ 5.4 H, BUN 54 H, Cre 1.41 H, BG 426 H*, POC BG 336, 320 H, Ca 7.9 L, Phos 3.4 WNL Height (Feet) 5 feet Height (Inches) 3.00 inches Weight (Pounds) 101 pounds Weight (Calculated Kilograms) 45.694872 kilograms Patient Weight 45.813 kg Body Mass Index 17.89 kg/m2 %IBW 88 Sunburst/Adjusted Body Weight 115#/ 52kg Weight Status Underweight Skin Integrity Comment: Vlad Score 13: Coccyx erythema; no edema per EMR 09/12 Current % PO 0% - NPO Estimated Energy Expenditure (kcals/day) 6471-7882 (35-40 kcals/kg to promote weight gain, FTT Dx) Estimated Protein Required (g/day) 69-92 (1.5-2.0 g/kg to promote weight gain, FTT Dx) Estimated Fluid Required (l/day) 1.6-1.8 (1mL/kcal) Problem/Etiology/Signs/Symptoms * Failure to thrive r/t poor PO intake a/e/b BMI 17.9 underweight, s/p PEG placement, SNF FTT Dx (On-going) Expected Outcomes/Goals Monitor nutritional intakes with pt tolerating EN at goal, EN provides >95% estimated nutritional needs, nutrition-related labs trending WNL, normal GI function, weight maintenance/skin integrity Dietitian Recommendations * Continue current EN per MD: Jevity 1.2 at 60mL/hr (goal), FWF per MD via GT * Home EN rec: 6 x 237mL (8oz) cartons Glucerna 1.2 per day; FWF 150mL Q6H via GT Provides 1710kcals, 86g PRO, 1752mL Free water (1152 EN) Meets: 107% upper estimated kcals, 93% upper estimated PRO, 110% estimated fluids * Refeeding risk: monitor electrolytes and thiamine x 3-5 days * Recommend MVI, B12, thiamine, VIT C, and VIT D for FTT * Consider monitor Fe lab High Risk: F/U in 2-3days
--- NOTE | 2022-09-12 18:46 | NUR ---
Dietitian Recommendations * Continue current EN per MD: Jevity 1.2 at 60mL/hr (goal), FWF per MD via GT * Home EN rec: 6 x 237mL (8oz) cartons Glucerna 1.2 per day; FWF 150mL Q6H via GT Provides 1710kcals, 86g PRO, 1752mL Free water (1152 EN) Meets: 107% upper estimated kcals, 93% upper estimated PRO, 110% estimated fluids * Refeeding risk: monitor electrolytes and thiamine x 3-5 days * Recommend MVI, B12, thiamine, VIT C, and VIT D for FTT * Consider monitor Fe lab Please refer to nutrition assessment for details, thanks! CC, MPH, YUNG Addendum: 09/13/22 at [address] RD included additional home instructions for bolus feeding in pt's hard chart and left another copy on top of pt's bedside table this morning.
[2022-09-12 20:00] VITALS: BP_SYST 135
[2022-09-12] MEDS ORDERED: MAGNESIUM SULFATE IV SCH ×6 (21:00)
[2022-09-12] MEDS ORDERED: TPN PERIPHERAL IV SCH ×6 (21:00)
[2022-09-12] MEDS ORDERED: MVI IV SCH ×6 (21:00)
[2022-09-12] MEDS ORDERED: [UNRECOGNIZED DRUG - OTHER] IV SCH ×6 (21:00)
[2022-09-12] MEDS ORDERED: TRACE ELEMENTS IV SCH ×6 (21:00)
[2022-09-12] MEDS ORDERED: AMIKACIN SULFATE 500 MG/2 ML VIAL ONE (23:10)
[2022-09-12] MEDS: FAT EMULSIONS 250 ML IV SCH (23:18)
[2022-09-13] VITALS (10 sets, daily range): BP systolic 85–130
[2022-09-13] MEDS: INSULIN REGULAR, HUMAN 100 UNITS/ML, 3 ML VIAL (humuLIN R) SUBCUT SCH ×4 (00:17→18:54)
[2022-09-13 07:09] LABS: ALANINE AMINOTRANSFERASE 18 U/L (12-78); ALBUMIN 1.9 g/dL (3.4-4.8); ANION GAP 7 (5-15); ASPARTATE AMINOTRANSFERASE 24 U/L (10-37); CALCIUM 8.4 mg/dL (8.4-11.0); CHLORIDE 118 mmol/L (98-107); CREATININE 1.34 mg/dL (0.55-1.30); GLUCOSE 272 mg/dL (70-99); PHOSPHORUS 2.3 mg/dL (2.7-4.5); TOTAL BILIRUBIN 0.8 mg/dL (0.0-1.0); UREA NITROGEN, BLOOD 60 mg/dL (8-21)
[2022-09-13 07:17] LABS: BASOPHILS % (AUTO) 0.2 % (0.0-2.0); HEMATOCRIT 32.5 % (36-48); HEMOGLOBIN 10.7 g/dL (12.0-16.0); LYMPHOCYTES # (AUTO) 0.2 K/uL (1.0-5.5); LYMPHOCYTES % (AUTO) 1.4 % (20.5-51.5); MEAN CORPUSCULAR HEMOGLOBIN 30 pg (27-31); MEAN CORPUSCULAR HGB CONC 33 % (32-36); MEAN CORPUSCULAR VOLUME 91 fL (79.0-98.0); MONOCYTES # (AUTO) 0.6 K/uL (0.0-1.0); MONOCYTES % (AUTO) 3.6 % (1.7-9.3); NEUTROPHILS # (AUTO) 15.6 K/uL (1.8-7.7); NEUTROPHILS % (AUTO) 94.8 % (40.0-70.0); PLATELET COUNT (AUTO) 90 K/uL (130-430); RED BLOOD CELL COUNT(AUTO) 3.57 MIL/uL (4.2-6.2); RED CELL DISTRIBUTION WIDTH 17.6 % (9.0-15.0); WHITE BLOOD COUNT (AUTO) 16.5 K/uL (4.8-10.8)
--- NOTE | 2022-09-13 08:00 | NUR ---
PATIENT RESTING IN BED. BED LOCKED AT LOWEST POSITION, SIDE RAILS UP, CALL LIGHT WITHIN REACH. PATIENT APPEARS COMFORTABLE. DENIES PAIN OR DISCOMFORT.
--- NOTE | 2022-09-13 10:30 | NUR ---
PATIENT SATURATING 86 ON ROOM AIR. NASAL CANNULA PUT ON PATIENT AT 2L, O2 95%. PATIENT TOLERATING WELL.
[2022-09-13] MEDS: METHYLPREDNISOLONE SOD SUCC 40 MG/ML VIAL IVP SCH (10:43)
[2022-09-13] MEDS: AMIKACIN SULFATE 250 MG in D5W 100 ML IV SCH ×2 (10:43→21:57)
[2022-09-13] MEDS: MUPIROCIN 2% TOPICAL OINTMENT 22 GM NS SCH ×2 (10:43→21:58)
[2022-09-13] MEDS: PANTOPRAZOLE SODIUM 40 MG/VIAL (PROTONIX) IVP SCH ×2 (10:44→21:59)
--- NOTE | 2022-09-13 12:00 | NUR ---
FEEDING INCREASED TO 40CC, PER GI DOCTOR INCREASE FEEDING TO 60 IF PATIENT TOLERATING WELL. LESS THAN 10 CC NOTED RESIDUAL
--- NOTE | 2022-09-13 13:57 | NUR ---
Discharge Planning: DCP faxed patient referral to [facility] [phone], [facility] [phone] for gtube feeding. DCP to follow up.
--- NOTE | 2022-09-13 15:30 | NUR ---
RESIDUAL CHECKED, LESS THAN 10CC, FEEDING INCREASED TO 60CC/HR. PATIENT REPOSITIONED. PATIENT STATES SHE WANTS WATER. NURSE INFORMED HER SHE IS NPO AND IS GETTING FEEDING VIA GTUBE. PATIENT COVERED WITH BLANKETS AND MADE COMFORTABLE.
--- NOTE | 2022-09-13 17:00 | NUR ---
PATIENT REMOVED O2 NASAL CANNULA, OXYGEN SATURATION 94% ROOM AIR. PATIENT STATES SHE IS COLD. BLANKETS PUT TO COVER SHOULDERS. WILL CONTINUE TO MONITOR.
--- NOTE | 2022-09-13 17:20 | NUR ---
Rebecca hoang called for patient. Patient was found unresponsive in bed. Pulse check not palpable. CPR started. Crash cart at bedside Rebecca hoang team came to assist. Dr. Tony at bedside to give verbal orders. Patient intubated and CPR continues. ACLS meds given. 3 rounds of Epinephrine given at stated intervals per protocol. 2 doses sodium bicarb given per protocol and Dr. Hernandez orders. Patient stabilized. Vital signs stable with blood pressure and pulse noted. Patient transferred to ICU.
--- NOTE | 2022-09-13 17:40 | NUR ---
RT NOTES Responded to code blue, pt was vomiting, oral sxn done, cpr in progress, bagged pt with 100% with BM device via mask. 175 pt was intubated with 7.5 ETT secured @22cm lipline, sxn via ETT. CO2 changed to yellow, bilateral b/s confirmed. 175 ROSC 180 transferred to ICU 4 placed on vent @1805. Pt. appear tolerate settings well. 181 no palpable pulse, cpr started, took pt off the vent and bagged with 100% O2 with Bm device to ETT. 1818 ROSC, pt back on vent, pt appears to tolerate settings well. Sat 97%. Exh CO2 42. Sputum collected, endorse to lab by rt Adriana. NOC shift rt to draw post intubation ABG and check CXR for ETT position.
--- NOTE | 2022-09-13 17:45 | NUR ---
LIEN BREWER CALLED TO PATIENTS ROOM. WHEN I WALKED IN LIEN BREWER HAD BEEN CALLED AND CPR WAS IN PROGRESS. PER BALANCE TRUER, PATIENTS HEART RATE BEGAN TO DROP AND TRAFFIC PERSONNEL SUPERVISOR RAN TO CHECK ON PATIENT. PATIENT UNAROUSABLE AND LIEN BREWER CALLED.
[2022-09-13] MEDS ORDERED: CALCIUM CHLORIDE 1 GM/10 ML DISP.SYRIN (14 mEq Ca++/SYR) IV ONE (18:00)
--- NOTE | 2022-09-13 18:03 | NUR ---
PATIENT POST INTUBATION AND TRANSFERRED TO ICU BED 4.
--- NOTE | 2022-09-13 18:12 | NUR ---
PATIENT IN ICU, NO PALPABLE PULSE, CODE BLUE CALLED AND CPR STARTED.
--- NOTE | 2022-09-13 18:13 | NUR ---
RN NOTES CODE BLUE CALLED, CPR INITIATED, ACLS MEDS GIVEN. SEE CODE BLUE SHEET FOR DOC.
--- NOTE | 2022-09-13 18:20 | NUR ---
Dr. Chayito ventura for IV started on foot.
--- NOTE | 2022-09-13 18:28 | NUR ---
REPORT GIVEN TO ICU NURSE AVIVA. ALL PERTINENT INFORMATION GIVEN TO NURSE.
[2022-09-13] MEDS ORDERED: SODIUM POLYSTYRENE SULFONATE 15 GM/60 ML UDBTL GT ONE (18:30)
[2022-09-13] MEDS ORDERED: 0.45% NACL 1,000 ML IV SCH (18:30)
--- NOTE | 2022-09-13 18:30 | NUR ---
IV 22G on right ankle is flushing, blood return noted, skin intact. No s/s infiltration or redness. GARRICK Morales made aware.
--- NOTE | 2022-09-13 18:30 | NUR ---
received report from Shelbi MCCAULEY,patient admitted to ICU room 4, patient on AC rate 24, tidal [id number], oxygen saturation 100 and PEEP of 5,patient vital signs heart rate 107, respiratory rate17,oxygen saturation 100.will continue to monitor.
[2022-09-13] MEDS ORDERED: NOREPINEPHRINE 4 MG/4 ML VIAL IV ONE (18:36)
[2022-09-13] MEDS ORDERED: SODIUM BICARBONATE 8.4% JECT 50 MEQ/50 ML SYRINGE IVP ONE ×4 (18:39→21:15)
[2022-09-13] MEDS ORDERED: EPINEPHrine JECT 0.1 MG/ML SYR IVP ONE (18:39)
--- NOTE | 2022-09-13 18:40 | NUR ---
HIGH ALERT NOTE: Called Dr. WELSH back at identified within the medical roster to verify physician authenticity. Addendum: 09/13/22 at 192 by Meño Sood RN CALLED DR BOWMAN AT PHONE NUMBER IN THE MEDICAL ROSTER. ADVISED PT BP IN THE . ORDERED BECKIE AND MALIKA CONSULT.
[2022-09-13] MEDS ORDERED: NOREPINEPHRINE BITARTRATE 4 MG in NS 246 ML IV PRN (18:45)
--- NOTE | 2022-09-13 18:45 | NUR ---
SPOKE WITH DR ENGLISH ADVISED PT BP IN THE 60'S AND ON LEVO. ORDERED 500CC NS BOLUS NOW, ALBUMIN 25% 100 ML TO BE GIVEN AFTER 500CC NS BOLUS, AND IV FLUIDS NS AT 150 MLS/HR.
--- NOTE | 2022-09-13 18:50 | NUR ---
HIGH ALERT NOTE: VASOPRESSIN Called Dr. DALY back at PHONE NUMBER identified within the medical roster to verify physician authenticity. ADVISED PT BP IN THE 70'S AND PT IS ON LEVOPHED. ORDERED VASOPRESSIN, 2 AMPS OF SODIUM BICARB, SOLU-MEDROL 100MG IVP Q8, RR INCREASED FROM 16 TO 24 ON VENTILATOR, AND ABG 30 MINS AFTER RR INCREASED TO 24.
[2022-09-13] MEDS ORDERED: VASOPRESSIN 20 UNITS/ML VIAL IV ONE ×2 (18:58→19:08)
[2022-09-13] MEDS ORDERED: SODIUM BICARBONATE 8.4% JECT 50 MEQ/50 ML SYRINGE ONE (18:59)
[2022-09-13] MEDS ORDERED: NACL 0.9% 1,000 ML IV SCH (19:00)
[2022-09-13] MEDS ORDERED: VASOPRESSIN 20 UNITS in NS 99 ML IV PRN (19:15)
[2022-09-13] MEDS ORDERED: ALBUMIN HUMAN 25% 100 ML IV ONE (20:00)
[2022-09-13] MEDS ORDERED: VANCOMYCIN HCL 500 MG in NS 100 ML IV SCH (20:00)
[2022-09-13] MEDS ORDERED: NS 500 ML IV ONE (20:00)
--- NOTE | 2022-09-13 20:00 | NUR ---
Patient's temperature low. Bear-hugger applied. Patient's blood pressure labile. No pulse ox reading at times DT circulation.
[2022-09-13 20:16] LABS: WHITE BLOOD COUNT (AUTO) 6.1 K/uL (4.8-10.8)
[2022-09-13 20:24] LABS: HEMOGLOBIN 10.2 g/dL (12.0-16.0); MEAN CORPUSCULAR HEMOGLOBIN 30 pg (27-31); MEAN CORPUSCULAR HGB CONC 33 % (32-36); MEAN CORPUSCULAR VOLUME 93 fL (79.0-98.0); PLATELET COUNT (AUTO) 62 K/uL (130-430); RED BLOOD CELL COUNT(AUTO) 3.36 MIL/uL (4.2-6.2); RED CELL DISTRIBUTION WIDTH 18.2 % (9.0-15.0)
[2022-09-13 20:26] LABS: ANION GAP 11 (5-15); CALCIUM 7.7 mg/dL (8.4-11.0); CREATININE 1.86 mg/dL (0.55-1.30); GLUCOSE 261 mg/dL (70-99); UREA NITROGEN, BLOOD 65 mg/dL (8-21)
[2022-09-13] MEDS ORDERED: LORazepam 2 MG/ML VIAL IVP PRN (20:30)
[2022-09-13 20:33] LABS: CHLORIDE 122 mmol/L (98-107)
[2022-09-13 20:54] LABS: BAND % (MANUAL) 13 % (0-6); BASOPHILS % (MANUAL) 0 % (0-2); EOSINOPHILS % (MANUAL) 0 % (0-7); LYMPHOCYTES % (MANUAL) 5 % (20-46); METAMYELOCYTES % 1 % (0-0); MONOCYTES % (MANUAL) 2 % (0-11)
[2022-09-13] MEDS ORDERED: PHENYLEPHRINE HCL 100 MG in NS 240 ML IV PRN (21:00)
[2022-09-13] MEDS ORDERED: MAGNESIUM SULFATE IV SCH ×7 (21:00)
[2022-09-13] MEDS ORDERED: TRACE ELEMENTS IV SCH ×7 (21:00)
[2022-09-13] MEDS ORDERED: TPN PERIPHERAL IV SCH ×7 (21:00)
[2022-09-13] MEDS ORDERED: NOREPINEPHRINE BITARTRATE 16 MG in NS 234 ML IV PRN (21:00)
[2022-09-13] MEDS ORDERED: MVI IV SCH ×7 (21:00)
[2022-09-13] MEDS ORDERED: [UNRECOGNIZED DRUG - OTHER] IV SCH ×7 (21:00)
--- NOTE | 2022-09-13 21:45 | NUR ---
Dr Snyder at bedside. Spoke with family. Family does not want chest compressions/cardioversion/defibrillation if needed. Doctor signed DNR form.
[2022-09-13] MEDS ORDERED: methylPREDNISolone SOD SUCC/PF 62.5 MG/ML VIAL IVP SCH (22:00)
[2022-09-13] MEDS ORDERED: SODIUM BICARBONATE 8.4% JECT 150 MEQ in D5W 1,000 ML IVP SCH (22:00)
[2022-09-13] MEDS ORDERED: HYDROCORTISONE SOD SUCC 100 MG/2 ML VIAL IVP SCH (22:00)
--- NOTE | 2022-09-13 22:29 | NUR ---
Patient's heart rate decreased rapidly to low 20s and then patient had PEA. No pulse palpated or auscultated via doppler. No heart sounds auscultated via stethoscope. Confirmed by 2 RNS, undersigned, Joey Henry and Licha Butts (charge nurse). Family at bedside.
--- NOTE | 2022-09-13 23:47 | NUR ---
Dr Pedro notified of patient's .
== END 2022-09-13 22:29 | DRG 871 ==
LOC: SED 08:11 → STU 10:57 → SIC 09-13 18:14
PROVIDERS: ADMIT Family Medicine; ATTEND Family Medicine
PROC: 0DH63UZ Insertion of Feeding Device into Stomach, Percutaneous Approach (ICD-10-PCS; principal; 2022-09-13)
PROC: 0BH17EZ Insertion of Endotracheal Airway into Trachea, Via Natural or Artificial Opening (ICD-10-PCS; 2022-09-13)
PROC: 5A1935Z Respiratory Ventilation, Less than 24 Consecutive Hours (ICD-10-PCS; 2022-09-13)
PROC: 0T9B70Z Drainage of Bladder with Drainage Device, Via Natural or Artificial Opening (ICD-10-PCS; 2022-09-13)
DX: A41.9 Sepsis, unspecified organism (principal); G93.41 Metabolic encephalopathy; J96.90 Respiratory failure, unspecified, unspecified whether with hypoxia or hypercapnia; N17.9 Acute kidney failure, unspecified; I24.8 Other forms of acute ischemic heart disease; G93.1 Anoxic brain damage, not elsewhere classified; E87.20 Acidosis, unspecified; N39.0 Urinary tract infection, site not specified; Z68.1 Body mass index [BMI] 19.9 or less, adult; E86.0 Dehydration; E03.9 Hypothyroidism, unspecified; E78.5 Hyperlipidemia, unspecified; F03.90 Unspecified dementia, unspecified severity, without behavioral disturbance, psychotic disturbance, mood disturbance, and anxiety; E11.9 Type 2 diabetes mellitus without complications; E87.5 Hyperkalemia; I10 Essential (primary) hypertension; J84.10 Pulmonary fibrosis, unspecified; Z20.822 Contact with and (suspected) exposure to COVID-19; R62.7 Adult failure to thrive; K29.70 Gastritis, unspecified, without bleeding; I46.9 Cardiac arrest, cause unspecified; D64.9 Anemia, unspecified; R13.10 Dysphagia, unspecified; I25.10 Atherosclerotic heart disease of native coronary artery without angina pectoris; Z88.5 Allergy status to narcotic agent; Z88.0 Allergy status to penicillin; Z88.2 Allergy status to sulfonamides; Z79.899 Other long term (current) drug therapy; Z74.01 Bed confinement status; Z79.02 Long term (current) use of antithrombotics/antiplatelets; Z79.82 Long term (current) use of aspirin; Z90.49 Acquired absence of other specified parts of digestive tract; Z95.1 Presence of aortocoronary bypass graft
CPT/HCPCS: 36415; 43246; 70450-TC; 71045; 71250-TC; 76376; 80048; 80053; 80061; 80150; 80307; 81000; 82009; 82140; 82550; 82962; 83605; 83690; 83735; 83880; 84100; 84443; 84478; 84484; 85007; 85025; 85027; 85610-TC; 85730-TC; 86140; 87040; 87081; 87086; 87186-TC; 92950; 93005; 93306; 94002; 94640; 96361; 96365; 99285; C9113; G0378; G0480; G0481; G0482; J0171; J0278; J1030; J1650; J1815; J1956; J2175; J2250; J2370; J2930; J3370; J3475; J3480; J3490; J7030; J7040; J7042; J7050; J7060